=== PATIENT | female | born 1965 | race Caucasian/White ===

== ENCOUNTER → 2017-04-29 | Outpatient (CLI) | payer BC | END | disposition home or self-care (01) | LOC: C.PATHSPEC 17:07 | PROVIDERS: ATTEND Orthopaedic Surgery | DX: M67.442 Ganglion, left hand (principal) ==

== ENCOUNTER → 2017-10-26 | Day surgery (SDC) | payer BC ==
[2017-10-19 12:49] VITALS: Ht 161.3 cm; Wt 68.2 kg
[~2017-10-26] VITALS: Ht 161.3 cm; Wt 68.2 kg
[~2017-10-26] MED LIST: ASPI81TA28 PO; ATOR-24 PO; CALC-51 PO; CHOL1000 PO; HYDR-3983 PO; LIDOCAINE HCL 2% 2 ML VIAL (20MG/ML) ONE; MORP-158 PO; MULT-506 PO; PRLSR20 PO; PROPOFOL IV EMULSION 10 MG/ML 20 ML VIAL ONE; SODIUM CHLORIDE 0.9% 500ML 500 ML IV ONE; SUCR1TAB29 PO
--- NOTE | 2017-10-26 08:27 | Endo History and Physical ---
History & Physical Date of Service: Oct 26, 2017. Chief Complaint: DYSPHAGIA, REFLUX, WITH DILATION Referring Physician: ANITA SANCHEZ History of Present Illness 52 yo CF who presents for EGD secondary to dysphagia and GERD. Past Surgical History Hx Cardiac Surgery: No Hx Internal Defibrillator: No Hx Pacemaker: No Hx Abdominal Surgery: Yes (C SECTION,OVARIAN CYSTECTOMY X MULTIPLE) Hx of Implantable Prosthesis: No Hx Post-Op Nausea and Vomiting: No Hx Cancer Surgery: No Hx Thoracic Surgery: No Hx Orthopedic: Yes (LOWER BACK SURG, R CTR, L CTR, L SHOULDER SCOPE) Hx Urinary Tract Surgery: No Family History None Social History Smoking Status: Former Smoker Hx Substance Use: No Hx Alcohol Use: No Allergies Coded Allergies: Nitrofurantoin (Verified Allergy, Unknown, SEVERE NAUSEA DIARRHEA, 10/19/17 ) Current Medications Reported Home Medications Medications Dose Route/Sig Max Daily Dose Days Date Category Dose Instructions Vitamin D3 (Cholecalciferol) 1,000 Unit Tab 1 Tab PO QAM 90 10/19/17 Reported Carafate (Sucralfate) 1 Gm Tab 1 Gm PO BID 10/19/17 Reported Ms Contin (Morphine Sulfate) 30 Mg Tab 30 Mg PO HS 10/19/17 Reported [place] 7.5MG/325MG (Acetaminophen/Hydrocodone Bitart) Tab 1 Tab PO PRN PRN 10/19/17 Reported PRN PAIN Prilosec (Omeprazole) 20 Mg Capcr 40 Mg PO QAM 10/19/17 Reported Multivitamin (Multivitamins) Tab 1 Tab PO HS 10/19/17 Reported [Calcium] 1 Tab PO QAM 10/19/17 Reported Lipitor (Atorvastatin Calcium) 40 Mg Tab 40 Mg PO HS 10/19/17 Reported Aspirin Ec (Aspirin) 81 Mg Tab 81 Mg PO QAM 10/19/17 Reported Vital Signs Weight (Kilograms): 68.18 Height (Feet): 5 Height (Inches): 3.5 Date Time Temp Pulse Resp B/P (MAP) Pulse Ox O2 Delivery O2 Flow Rate FiO2 10/26/17 08:05 36.4 62 20 130/90 (103) 99 Physical Exam General Appearance: WD/WN, no apparent distress Respiratory/Chest: Auscultation: breath sounds normal Cardiovascular: Heart Auscultation: RRR Abdomen: Bowel Sounds: normal Inspection & Palpation: soft, non-distended, no tenderness, guarding & rebound Assessment and Plan Assessment: 52 yo CF who presents for EGD secondary to dysphagia and GERD. Plan: Proceed with EGD.
--- NOTE | 2017-10-26 09:02 | Discharge Instructions ---
Endoscopy Patient Instructions Date / Procedure(s) Performed Oct 26, 2017. EGD Allergy Information Coded Allergies: Nitrofurantoin (Verified Allergy, Unknown, SEVERE NAUSEA DIARRHEA, 10/26/17) Discharge Date / Findings Oct 26, 2017. Gastritis s/p biopsies Hiatal hernia Schatzki's ring s/p dilation to 18 mm Medication Instructions Stopped Medication(s): ASPIRIN TWO WEEKS BEFORE PROCEDURE OK to resume all medications today as prescribed Reported Home Medications Medications Dose Route/Sig Max Daily Dose Days Date Category Dose Instructions Vitamin D3 (Cholecalciferol) 1,000 Unit Tab 1 Tab PO QAM 90 10/19/17 Reported Carafate (Sucralfate) 1 Gm Tab 1 Gm PO BID 10/19/17 Reported Ms Contin (Morphine Sulfate) 30 Mg Tab 30 Mg PO HS 10/19/17 Reported [place] 7.5MG/325MG (Acetaminophen/Hydrocodone Bitart) Tab 1 Tab PO PRN PRN 10/19/17 Reported PRN PAIN Prilosec (Omeprazole) 20 Mg Capcr 40 Mg PO QAM 10/19/17 Reported Multivitamin (Multivitamins) Tab 1 Tab PO HS 10/19/17 Reported [Calcium] 1 Tab PO QAM 10/19/17 Reported Lipitor (Atorvastatin Calcium) 40 Mg Tab 40 Mg PO HS 10/19/17 Reported Aspirin Ec (Aspirin) 81 Mg Tab 81 Mg PO QAM 10/19/17 Reported Provider Instructions Activity Restrictions - No exercising or heavy lifting for 24 hours. - Do not drink alcohol the day of the procedure. - Do not drive a car or operate machinery until the day after the procedure. - Do not make any important decisions or sign important papers in 24 hours after the procedure. Following Day: - Return to full activity which may include returning to work/school. Diet Start your diet with liquids and light foods (jello, soup, juice, toast). Then eat your usual diet if not nauseated. Treatment For Common After Affects For mild abdominal pain, bloating, or excessive gas: - Rest - Eat lightly - Lie on right side Follow-Up Information Follow-up with ANITA SANCHEZ as scheduled Anesthesia Information What You Should Know You have had a procedure that required some medicine to reduce anxiety and discomfort. This treatment is called moderate sedation. After receiving the treatment, you may be sleepy, but you will be able to breathe on your own. The effects of the treatment may last for several hours. Follow these instructions along with Activity/Diet recommendations noted above: * Do NOT do anything where dizziness or clumsiness would be dangerous. * Rest quietly at home today, then you can be up and about tomorrow. * Have a responsible person stay with you the rest of today. * You may have had an I.V. today. If so, you may take the dressing off later today. Recommendations Call your doctor if: * Trouble breathing * Continuous vomiting for more than 24 hours * Temperature above 101 degrees * Severe abdominal pain or bloating * Pain not relieved by pain medicine ordered * There is increased drainage or redness from any incision * A large amount of rectal bleeding greater than 2-3 tablespoons. (If you had a polyp/s removed or have hemorrhoids, a small amount of blood - from the rectum is to be expected.) * You have any unanswered questions or concerns. IN THE EVENT OF A SERIOUS EMERGENCY, GO TO THE NEAREST EMERGENCY ROOM Your discharge instructions were prepared by provider Manas Kearns. Patient Instructions Signature Page Madonna Nearing Patient (or Guardian) Signature/Date: I have read and understand the instructions given to me by my caregivers. Caregiver/RN/Doctor Signature/Date: The above-named patient and/or guardian has received patient instructions on this date. + Original Patient Signature Page (only) stays with chart. Please make copy for patient.
--- NOTE | 2017-10-26 09:11 | GI REPORT ---
Patient Name: Madonna Taylor Procedure Date: 10/26/2017 8:26 AM Date of : 1965 Admit Type: Outpatient Age: 52 Gender: Female Attending MD: Manas Kearns DO Procedure: Upper GI endoscopy Providers: Manas Kearns DO Referring MD: Gabriela Mayes M.d. Indications: Dysphagia, Suspected gastro-esophageal reflux disease Medicines: Monitored Anesthesia Care Complications: No immediate complications. Estimated Blood Loss: Estimated blood loss: none. Procedure: Pre-Anesthesia Assessment: - Prior to the procedure, a History and Physical was performed, and patient medications and allergies were reviewed. The patient's tolerance of previous anesthesia was also reviewed. The risks and benefits of the procedure and the sedation options and risks were discussed with the patient. All questions were answered, and informed consent was obtained. Prior Anticoagulants: The patient has taken aspirin, last dose was 14 days prior to procedure. ASA Grade Assessment: II - A patient with mild systemic disease. After reviewing the risks and benefits, the patient was deemed in satisfactory condition to undergo the procedure. After obtaining informed consent, the endoscope was passed under direct vision. Throughout the procedure, the patient's blood pressure, pulse, and oxygen saturations were monitored continuously. The scope was introduced through the mouth, and advanced to the second part of duodenum. The upper GI endoscopy was accomplished without difficulty. The patient tolerated the procedure well. Findings: A moderate Schatzki ring (acquired) was found at the gastroesophageal junction. A TTS dilator was passed through the scope. Dilation with a 15-16.5-18 mm balloon dilator was performed to 18 mm. A small hiatal hernia was present. Localized mild inflammation characterized by erythema was found in the gastric antrum. Biopsies were taken with a cold forceps for histology. The examined duodenum was normal. Impression: - Moderate Schatzki ring. Dilated. - Small hiatal hernia. - Gastritis. Biopsied. - Normal examined duodenum. Recommendation: - Resume previous diet. - Continue present medications. - Await pathology results. - Repeat upper endoscopy PRN for retreatment. - Return to primary care physician as previously scheduled. Manas Kearns DO 10/26/2017 9:10:15 AM This report has been signed electronically. Note Initiated On: 10/26/2017 8:26 AM Number of Addenda: 0 I attest to the content of the Intraoperative Record and orders documented therein, exceptions below {[id number]}
[2017-10-26 09:38] VITALS: BP 142/76; PULSE 58; O2SAT 98
--- NOTE | 2017-10-26 10:00 | Anesthesiology Progress Note ---
Anesthesia Post Op Note Date & Time Oct 26, 2017 at 10:00 Vital Signs Pain Intensity: 0 Vital Signs Past 12 Hours Date Time Temp Pulse Resp B/P (MAP) Pulse Ox O2 Delivery O2 Flow Rate FiO2 10/26/17 09:38 58 20 142/76 (98) 98 10/26/17 09:20 66 20 134/89 (104) 98 10/26/17 09:05 71 14 121/74 (90) 98 10/26/17 08:05 36.4 62 20 130/90 (103) 99 Notes Mental Status: alert / awake / arousable, participated in evaluation Pt Amnestic to Procedure: Yes Nausea / Vomiting: adequately controlled Pain: adequately controlled Airway Patency, RR, SpO2: stable & adequate BP & HR: stable & adequate Hydration State: stable & adequate Anesthetic Complications: no major complications apparent
== END | disposition home or self-care (01) ==
LOC: C.GI 07:36 → EDSTATUS 08:30
PROVIDERS: ATTEND Internal Medicine
DX: K22.2 Esophageal obstruction (principal); K21.9 Gastro-esophageal reflux disease without esophagitis; K29.70 Gastritis, unspecified, without bleeding; K44.9 Diaphragmatic hernia without obstruction or gangrene; M19.90 Unspecified osteoarthritis, unspecified site; E78.5 Hyperlipidemia, unspecified; Z87.891 Personal history of nicotine dependence; Z88.8 Allergy status to other drugs, medicaments and biological substances; Z79.82 Long term (current) use of aspirin